=== PATIENT | female | born 1940 | race Caucasian/White ===

== ENCOUNTER 2019-07-11 10:03 | Inpatient (IN) | payer OTHER, SELFPAY ==
[2019-07-11] VITALS (19 sets, daily range): BP systolic 120–149; BP diastolic 56–96; PULSE 92–142; RESP 20–37; TEMP 35.8–36.9; O2SAT 94–100; BMI 53.6
--- NOTE | ~2019-07-11 | XR_ITS ---
EXAMINATION: XR chest 1V portable INDICATION: Shortness of breath TECHNIQUE: Portable AP chest at 1042 hours COMPARISON: None available FINDINGS: Cardiomegaly is noted. There is a diffuse interstitial pattern. No definite pleural effusio n or pneumothorax is identified. There are changes of prior cardiac surgery. IMPRESSION: 1. Cardiomegaly. 2. Diffuse interstitial pattern, likely moderate pulmonary edema. Reviewed, dictated and finalized at location A. D REPRESENTATIVE
--- NOTE | 2019-07-11 10:19 | ECG_ITS ---
Measurements Intervals [place] Rate: 108 P: 47 KS: 206 QRS: 30 QRSD: 115 T: 107 QT: 337 QTc: 453 Interpretive Statements SINUS TACHYCARDIA INTRAVENTRICULAR CONDUCTION DELAY LOW QRS VOLTAGE IN PRECORDIAL LEADS CANNOT RULE OUT SEPTAL INFARCT, AGE INDETERMINATE BORDERLINE ST-T WAVE ABNORMALITY- LATERAL LEADS BASELINE WANDER- V3 ABNORMAL ECG Electronically Signed On 07-11-2019 10:23:16 HISTOLOGICAL ILLUSTRATOR by Max Hernandez D.O.
--- NOTE | 2019-07-11 10:19 | ED.SOB ---
HPI - SOB/Dyspnea General Chief Complaint: Shortness of Breath/Dyspnea Stated Complaint: sob Time Seen by Provider: 07/11/19 10:17 Source: patient and RN notes reviewed Mode of arrival: EMS Limitations: clinical condition History of Present Illness HPI Narrative: A 79 y/o female, with hx of COPD and CHF, presents to the ED via EMS with with a BiPAP in place d/t worsening SOB for the past 3 days. She reports a recent cough and low grade fevers. She notes that she has chronic unchanged BLE edema. She denies any nasal congestion, sore throat, CP, sweats, N/V/D, or ABD pain. MD elicited complaint: shortness of breath Pertinent past history: COPD and congestive heart failure Onset (ago): day(s) (3) Context: recent illness Timing: progressively worsening Known history of: COPD and congestive heart failure Associated symptoms: fever (low grade), cough and other (chronic unchanged BLE edema) Treatment prior to arrival: other (BiPAP) Related Data Home Medications Medication Instructions Recorded Confirmed albuterol sulfate 2.5 mg INHALATION Q6H PRN 07/11/19 07/11/19 alprazolam 0.5 mg PO DAILY 07/11/19 07/11/19 amitriptyline 25 mg PO HS 07/11/19 07/11/19 aspirin [Hayley Chewable Aspirin] 81 mg PO DAILY 07/11/19 07/11/19 atorvastatin 40 mg PO HS 07/11/19 07/11/19 clopidogrel 75 mg PO DAILY 07/11/19 07/11/19 docusate sodium 200 mg PO DAILY 07/11/19 07/11/19 enalapril maleate 2.5 mg PO DAILY 07/11/19 07/11/19 famotidine 40 mg PO HS 07/11/19 07/11/19 fluticasone propion-salmeterol 1 ea INHALATION Q12H 07/11/19 07/11/19 [Advair Diskus] folic acid 1 mg PO DAILY 07/11/19 07/11/19 furosemide 40 mg PO DAILY 07/11/19 07/11/19 glipizide 2.5 mg PO DAILY 07/11/19 07/11/19 hydrocodone-acetaminophen 2 tablet PO Q6H PRN 07/11/19 07/11/19 ipratropium bromide 3 ml INHALATION Q12H 07/11/19 07/11/19 isosorbide mononitrate 60 mg PO DAILY 07/11/19 07/11/19 magnesium hydroxide [Milk of 30 ml PO DAILY PRN 07/11/19 07/11/19 Magnesia] magnesium oxide 400 mg PO DAILY 07/11/19 07/11/19 metoprolol succinate 100 mg PO DAILY 07/11/19 07/11/19 multivitamin 1 cap PO DAILY 07/11/19 07/11/19 nitroglycerin 0.4 mg SUBLINGUAL Q5M PRN 07/11/19 07/11/19 omega-3 fatty acids 1,000 mg PO BID 07/11/19 07/11/19 pantoprazole 40 mg PO DAILY 07/11/19 07/11/19 potassium chloride 40 meq PO DAILY 07/11/19 07/11/19 ranolazine 1,000 mg PO BID 07/11/19 07/11/19 sertraline 50 mg PO DAILY 07/11/19 07/11/19 spironolactone 25 mg PO DAILY 07/11/19 07/11/19 Allergies Allergy/AdvReac Type Severity Reaction Status Date / Time ibuprofen Allergy Hives Verified 07/11/19 11:54 shrimp Allergy Other Verified 07/11/19 11:54 codeine AdvReac Nausea Verified 07/11/19 11:54 morphine AdvReac Nausea Verified 07/11/19 11:54 Review of Systems Review of Systems: All systems reviewed & are unremarkable except as noted in HPI and below Constitutional: Constitutional: Reports fever(s) (low grade) ENT: Denies nasal congestion and Denies sore throat Cardiovascular: Cardiovascular: Denies chest pain, Denies diaphoresis and Reports edema (chronic unchanged BLE) Respiratory: Respiratory: Reports cough and Reports dyspnea Gastrointestinal: Gastrointestinal: Denies abdominal pain, Denies diarrhea, Denies nausea and Denies vomiting [facility] Past Medical History Medical History (Updated 07/11/19 @ 19:26 by Rod Zapata MD) Anxiety CAD (coronary artery disease) CHF (congestive heart failure) COPD (chronic obstructive pulmonary disease) Depression DM2 (diabetes mellitus, type 2) HTN (hypertension) with goal to be determined Hyperlipidemia Obstructive sleep apnea Surgical History Surgical History (Updated 07/11/19 @ 18:09 by Vijaya Shnanon NP) H/O heart artery stent X4 H/O: hysterectomy Hx of cholecystectomy Previous back surgery X9 S/P CABG x 4 Family History Family History Mother Acute myocardial infarction Sibling Acute m
[2019-07-11 10:31] LABS: Alveolar/Arterial O2 Gradient 479.4 mmHg; Base Excess ABG 1.6 mEq/l (+/-2.0); Carboxyhemoglobin 1.2 % THb (0-2.0); Fractional Inspired Oxygen 100 %; HCO3 ABG 30.4 mEq/l (22.0-26.0); Methemoglobin ABG 0.1 %THb (0-1.5); Oxygen Content ABG 18.4 %vol (16.0-22.0); Oxygen Saturation ABG 98.8 % (95.0-100.0); Oxyhemoglobin 97.2 % THb (90.0-100.0); PO2 ABG 164.8 mmHg (80.0-100.0); PO2 FiO2 Ratio Arterial Blood 1.65 %; Reduced Hemoglobin 1.5 %THb (0-5.0); Total Hemoglobin 13.2 g/dL (12.0-18.0)
[2019-07-11 10:34] LABS: Device OTHER DEVICE; Modified Allen's Test Pass; PCO2 ABG 68.8 mmHg (35.0-45.0); Site Drawn LEFT RADIAL; pH ABG 7.263 (7.350-7.450)
[2019-07-11] MEDS: IPRATROPIUM BR 0.02% INH SOLN 0.5 MG/2.5 ML VIAL 1 MG INHALATION (10:35)
[2019-07-11] MEDS: ALBUTEROL SULFATE NEB 2.5 MG/0.5 ML INH 15 MG INHALATION (10:35)
[2019-07-11 10:37] LABS: Basophils Absolute Auto 0.1 K/mm3 (0.0-0.1); Basophils Percent Auto 0.5 % (0.2-1.2); Eosinophils Absolute Auto 0.3 K/mm3 (0-0.3); Eosinophils Percent Auto 2.4 % (0-4.4); Hematocrit 42.3 % (37.0-47.0); Hemoglobin 13.2 g/dL (12.0-15.0); Immature Granulocyte Absolute 0.22 K/mm3 (0.00-0.031); Immature Granulocyte Percent A 1.6 % (0-0.5); Lymphocytes Absolute Auto 4.94 K/mm3 (0.9-3.2); Lymphocytes Percent Auto 35.4 % (18.3-44.2); Mean Corpuscular HGB Conc 31.2 g/dl (32-36); Mean Corpuscular Hemoglobin 31.9 pg (26-34); Mean Corpuscular Volume 102.2 fl (80-100); Mean Platelet Volume 10.7 fl (7.4-10.4); Monocytes Absolute Auto 1.2 K/mm3 (0.1-0.6); Monocytes Percent Auto 8.4 % (2.6-8.5); Neutrophils Absolute Auto 7.2 K/mm3 (1.3-6.7); Neutrophils Percent Auto 51.7 % (45.5-73.1); Platelet Count Result 284 k/mm3 (150-375); Red Blood Count 4.14 M/mm3 (4.2-5.4); Red Cell Distribution Width 12.6 % (11.5-14.5); White Blood Count 13.9 K/mm3 (4.5-10.0)
[2019-07-11 10:51] LABS: Prothrombin Time 12.6 Seconds (11.1-14.7)
[2019-07-11 10:52] LABS: Partial Thromboplastin Time 33.3 SECONDS (22.3-36.8)
[2019-07-11 10:59] LABS: NT Pro B Type Natriuretic Pept 3030 PG/ML (5-100)
[2019-07-11 11:06] LABS: Alanine Aminotransferase 22 U/L (4-35); Albumin Level 3.7 g/dL (3.5-5.1); Alkaline Phosphatase 105 U/L (38-126); Aspartate Amino Transferase 35 U/L (14-36); Bilirubin,Total 0.5 mg/dL (0.2-1.3); Blood Urea Nitrogen 16 mg/dL (7-17); Calcium 8.9 mg/dL (8.4-10.2); Carbon Dioxide 29 mmol/L (22-30); Chloride 95 mmol/L (98-107); Estimated Glomerular Filt Rate > 60; Glucose 130 mg/dL (65-105); Potassium 4.2 mmol/L (3.4-5.0); Sodium 134 mmol/L (137-145)
[2019-07-11] MEDS: FUROSEMIDE INJ 40 MG/4 ML VIAL IV PUSH ×2 (11:18→21:30)
[2019-07-11] MEDS: methylPREDNISolone SOD SUCC 125 MG VIAL IV PUSH (11:18)
[2019-07-11 11:27] LABS: CRP 12.9 mg/dL (<1.0)
[2019-07-11 11:50] LABS: Add Urine Microscopic? NO; Appearance Urine Clear (Clear); Bilirubin Urine Negative (Negative); Blood Urine Negative (Negative); Color Urine Yellow (Yellow); Glucose Urine UA Negative (Negative); Ketones Urine Negative (Negative); Leukocyte Esterase Ur Negative LEU/UL (Negative); Nitrate Urine Negative (Negative); Protein Urine Negative (Negative); Specific Grav Ur 1.016 (1.001-1.035); Urobilinogen Urine Negative mg/dL (<2.0)
--- NOTE | 2019-07-11 13:15 | PC.NURSE ---
This patient, Angelica Garrett, was admitted to IMU Room 203-01. Patient/family oriented to hospital policies and general routines including ID bracelet, bed and alarms, visiting hours, pain management, procedures, bathroom and other care routines, personal items, smoking policy, room service/diet, and visiting hours. Valuables list has been completed. Information on how to activate the Rapid Response Team has been discussed. Patient/Family are encouraged to report perceived risks to care and to ask questions if they do not understand what they are told or what they should do.
[2019-07-11 17:17] LABS: Glucose Point of Care 191 (65-105)
--- NOTE | 2019-07-11 17:58 | PM.IMHP ---
H&P: HPI History of Present Illness Chief complaint: CHF exacerbation/acute respiratory failure Narrative: Angelica Garrett is a 79 year old female who has a history of COPD, obstructive sleep apnea. The patient chronically wears oxygen at home typically 2 L. yesterday she bumped her oxygen up to 2.5 L. she stated that she has taken all of her medications as prescribed. Patient has been more short of breath with exertion after minimal exertion. She also has orthopnea. Patient was very wheezy as well. Patient typically goes [facility] however when EMS picked her up her O2 saturations were very low. I do not have the exact numbers as I do not have access to the ER notes at this time. Patient initially was placed on a BiPAP and came to IMU on her normal oxygen. Patient became very anxious at 1 time. She is now sitting on the side of the bed and is talkative. She is able to talk in full sentences. Her lower extremities are about 4+ pitting edema. Nebulizer treatments. Date of service 07/11/2019. Review of Systems Review of Systems: Narrative: The patient had multiple complaints today. Patient became teary-eyed and was complaining about how she has no help around the house. She has her daughter living with her and feels that her daughter does not do enough to help her. Patient states she needs more help at home. Her recently started dialysis. Patient short of breath with exertion as well as sling flat. She has home oxygen. She has had increased swelling to her lower extremities. All systems reviewed & are unremarkable except as noted in HPI and below Constitutional: Constitutional: Reports as per HPI, Reports no additional constitutional complaints, Reports fatigue and Reports weakness Eyes: Eyes: Reports as per HPI and Reports no additional eye complaints ENT: Reports system reviewed and no additional complaints, except as documented and Reports hearing normal Cardiovascular: Cardiovascular: Reports no additional cardiovascular complaints Comments: History of congestive heart failure. Respiratory: Respiratory: Reports as per HPI, Reports no additional respiratory complaints, Reports no additional respiratory complaints, Reports dyspnea and Reports dyspnea on exertion Gastrointestinal: Gastrointestinal: Reports as per HPI and Reports no additional gastrointestinal complaints Musculoskeletal: Musculoskeletal: Reports no additional musculoskeletal complaints Integumentary/Breasts: Skin/Breast: Reports system reviewed and no additional complaints, except as docu and Reports as per HPI Neurologic: Reports system reviewed and no additional complaints, except as documented, Reports as per HPI and Reports Normal hearing present Psychiatric: Psychiatric: Reports no additional psychiatric complaints and Reports as per HPI Endocrine: Endocrine: Reports no additional endocrine complaints Hematologic/Lymphatic: Hematologic/Lymphatic: Reports no additional hematologic/lymphatic complaints Allergic/Immunologic: Allergic/Immunologic: Reports no additional allergic/immunologic complaints [facility] Past Medical History Medical History (Updated 07/11/19 @ 18:21 by Vijaya Shannon NP) Anxiety CAD (coronary artery disease) CHF (congestive heart failure) COPD (chronic obstructive pulmonary disease) Depression DM2 (diabetes mellitus, type 2) HTN (hypertension) with goal to be determined Hyperlipidemia Obstructive sleep apnea Surgical History Surgical History (Updated 07/11/19 @ 18:09 by Vijaya Shannon NP) H/O heart artery stent X4 H/O: hysterectomy Hx of cholecystectomy Previous back surgery X9 S/P CABG x 4 Family History Family History Mother Acute myocardial infarction Sibling Acute myocardial infarction Hx of CABG Diabetes mellitus Small cell lung cancer Other Colon cancer granddaughter Social History Social
[2019-07-11 20:11] LABS: Alveolar/Arterial O2 Gradient 93.2 mmHg; Fractional Inspired Oxygen 30 %; HCO3 ABG 27.2 mEq/l (22.0-26.0); Oxygen Content ABG 16.5 %vol (16.0-22.0); Oxygen Saturation ABG 93.6 % (95.0-100.0); Oxyhemoglobin 93.1 % THb (90.0-100.0); PCO2 ABG 44.6 mmHg (35.0-45.0); PO2 ABG 68.3 mmHg (80.0-100.0); PO2 FiO2 Ratio Arterial Blood 2.28 %; Total Hemoglobin 12.6 g/dL (12.0-18.0); pH ABG 7.403 (7.350-7.450)
[2019-07-11 20:13] LABS: Device NASAL CANNULA; Liters per Minute 2.5 LPM; Modified Allen's Test Pass; Site Drawn LEFT RADIAL
[2019-07-11] MEDS: RANOLAZINE 500 MG TAB.ER.12H 1000 MG PO (20:13)
[2019-07-11] MEDS: methylPREDNISolone SOD SUCC 125 MG VIAL 60 MG IV PUSH (20:14)
[2019-07-11] MEDS: OMEGA 3 POLYUNSAT FATTY ACIDS 1 GM CAP PO (20:14)
[2019-07-11] MEDS: METOPROLOL SUCCINATE EXT REL 100 MG TABCR PO (20:14)
[2019-07-11 20:26] LABS: Glucose Point of Care 336 (65-105)
[2019-07-11] MEDS: LEVALBUTEROL NEB 1.25 MG/3 ML 0.63 MG INHALATION (20:35)
[2019-07-11] MEDS: FAMOTIDINE 20 MG TABLET 40 MG PO (21:30)
[2019-07-11] MEDS: INSULIN ASPART (*BKC) 100 UNITS/ML 6 UNITS SUB-Q (21:30)
[2019-07-11] MEDS: ATORVASTATIN 40 MG TABLET PO (21:30)
[2019-07-11] MEDS: AMITRIPTYLINE HCL 25 MG TABLET PO (21:30)
--- NOTE | 2019-07-11 22:07 | ECG_ITS ---
Measurements Intervals [place] Rate: 115 P: NE: 0 QRS: 83 QRSD: 97 T: 145 QT: 361 QTc: 500 Interpretive Statements ATRIAL FLUTTER/TACHYCARDIA WITH RAPID VENTRICULAR RESPONSE ST-T WAVE ABNORMALITY IN ANTEROLAT/LAT LEADS- CONSIDER ISCHEMIA BASELINE ARTIFACT- I, III, AVL, AVF ABNORMAL ECG Electronically Signed On 07-12-2019 7:17:58 BELT GLASS SANDER by Max Hernandez D.O.
[2019-07-11] MEDS: ENOXAPARIN 100 MG/ML SYRINGE SUB-Q (22:42)
[2019-07-11] MEDS: ENOXAPARIN 30 MG/0.3 ML SYRINGE SUB-Q (22:42)
[2019-07-12] VITALS (22 sets, daily range): BP systolic 106–154; BP diastolic 62–88; PULSE 72–139; RESP 18–22; TEMP 35.9–36.8; O2SAT 92–98
[2019-07-12] MEDS: methylPREDNISolone SOD SUCC 125 MG VIAL 60 MG IV PUSH ×5 (01:28→23:11)
[2019-07-12] MEDS: LEVALBUTEROL NEB 1.25 MG/3 ML 0.63 MG INHALATION ×4 (02:00→20:18)
[2019-07-12 06:08] LABS: Basophils Percent Auto 0.1 % (0.2-1.2); Hematocrit 36.1 % (37.0-47.0); Hemoglobin 11.6 g/dL (12.0-15.0); Immature Granulocyte Absolute 0.09 K/mm3 (0.00-0.031); Immature Granulocyte Percent A 0.9 % (0-0.5); Lymphocytes Absolute Auto 1.24 K/mm3 (0.9-3.2); Lymphocytes Percent Auto 12.8 % (18.3-44.2); Mean Corpuscular HGB Conc 32.1 g/dl (32-36); Mean Corpuscular Hemoglobin 31.8 pg (26-34); Mean Corpuscular Volume 98.9 fl (80-100); Mean Platelet Volume 10.7 fl (7.4-10.4); Monocytes Absolute Auto 0.3 K/mm3 (0.1-0.6); Monocytes Percent Auto 2.8 % (2.6-8.5); Neutrophils Absolute Auto 8.1 K/mm3 (1.3-6.7); Neutrophils Percent Auto 83.4 % (45.5-73.1); Platelet Count Result 261 k/mm3 (150-375); Red Blood Count 3.65 M/mm3 (4.2-5.4); Red Cell Distribution Width 12.5 % (11.5-14.5); White Blood Count 9.7 K/mm3 (4.5-10.0)
[2019-07-12 06:22] LABS: Potassium 4.3 mmol/L (3.4-5.0)
[2019-07-12 06:26] LABS: Alanine Aminotransferase 21 U/L (4-35); Albumin Level 3.1 g/dL (3.5-5.1); Alkaline Phosphatase 82 U/L (38-126); Aspartate Amino Transferase 33 U/L (14-36); Bilirubin,Total 0.3 mg/dL (0.2-1.3); Blood Urea Nitrogen 18 mg/dL (7-17); Calcium 8.7 mg/dL (8.4-10.2); Carbon Dioxide 31 mmol/L (22-30); Chloride 96 mmol/L (98-107); Estimated CRCL calculation 66 ml/min; Estimated Glomerular Filt Rate > 60; Glucose 140 mg/dL (65-105); Magnesium 1.7 mg/dL (1.6-2.3); Potassium 4.2 mmol/L (3.4-5.0); Sodium 135 mmol/L (137-145)
[2019-07-12 07:08] LABS: Hemoglobin A1C 5.9 % (<5.7)
[2019-07-12] MEDS: glipiZIDE XL 2.5 MG TAB.ER.24 PO (08:04)
[2019-07-12] MEDS: PANTOPRAZOLE 40 MG TABLET PO (08:06)
[2019-07-12] MEDS: MAGNESIUM OXIDE 400 MG TABLET PO (08:07)
[2019-07-12] MEDS: ASPIRIN 81 MG CHEWABLE TABLET PO (08:07)
[2019-07-12] MEDS: METOPROLOL SUCCINATE EXT REL 100 MG TABCR PO (08:07)
[2019-07-12] MEDS: SPIRONOLACTONE 25 MG TABLET PO (08:07)
[2019-07-12] MEDS: FOLIC ACID 1 MG TABLET PO (08:08)
[2019-07-12] MEDS: FUROSEMIDE INJ 40 MG/4 ML VIAL IV PUSH ×2 (08:08→20:00)
[2019-07-12] MEDS: MULTIVITAMINS THERAPEUTIC TAB (*BKC) 1 TABLET PO (08:08)
[2019-07-12] MEDS: ISOSORBIDE MONONITRATE 60 MG TAB.ER.24H PO (08:08)
[2019-07-12] MEDS: SERTRALINE HCL 50 MG TABLET PO (08:08)
[2019-07-12] MEDS: CLOPIDOGREL BISULFATE 75 MG TABLET PO (08:09)
[2019-07-12] MEDS: OMEGA 3 POLYUNSAT FATTY ACIDS 1 GM CAP PO ×2 (08:09→16:54)
[2019-07-12] MEDS: ENALAPRIL MALEATE 2.5 MG TABLET PO (08:09)
[2019-07-12] MEDS: ENOXAPARIN 30 MG/0.3 ML SYRINGE SUB-Q ×2 (08:09→20:01)
[2019-07-12] MEDS: RANOLAZINE 500 MG TAB.ER.12H 1000 MG PO ×2 (08:10→16:56)
[2019-07-12] MEDS: POTASSIUM CHLORIDE 20 MEQ TABLET.ER 40 MEQ PO (08:10)
[2019-07-12] MEDS: ENOXAPARIN 100 MG/ML SYRINGE SUB-Q ×2 (08:11→20:01)
[2019-07-12] MEDS: DOCUSATE SODIUM 100 MG CAPSULE 200 MG PO (08:11)
[2019-07-12 08:20] LABS: Thyroid Stimulating Hormone Reflex 0.593 uIU/mL (0.465-4.68)
[2019-07-12 08:33] LABS: Glucose Point of Care 161 (65-105)
[2019-07-12] MEDS: ALPRAZOLAM 0.5 MG TABLET PO (08:35)
[2019-07-12] MEDS: IPRATROPIUM BR 0.02% INH SOLN 0.5 MG/2.5 ML VIAL INHALATION (09:35)
--- NOTE | 2019-07-12 11:18 | WPDCN ---
Assessment and Plan Assessment and plan (1) Atrial flutter: Code(s): I48.92 - Unspecified atrial flutter Status: Acute Assessment and Plan: Paroxysmal atrial flutter, typical pattern, initially noted June 2019. Will work with rate control and anticoagulation. Already taking metoprolol SR 100 mg daily; will add Cardizem 120 mg qd though unfortunately the patient already has significant edema. One EKG showed a somewhat prolonged QT interval, so sotalol use may be problematic. However we could consider that if we fail other therapies, though we may need to discontinue the patient's RAnolazine and amitriptyline. Prefer not to use amiodarone if possible because of her pre-existing lung disease. A flutter ablation is another option. Recommended anticoagulation; we will start warfarin but see if her insurance might cover a NOAC. FU w/ her usual [employer] architect Dr. Heaton after discharge. Although I have explained all this to the patient, she was so distracted by her other social issues I do not think she heard much of what I said. . (2) CHF (congestive heart failure): Qualifiers: Heart failure chronicity: acute on chronic Heart failure type: unspecified Qualified Code(s): I50.9 - Heart failure, unspecified Code(s): I50.9 - Heart failure, unspecified Status: Chronic Assessment and Plan: History of diastolic CHF, with an exacerbation, improving with IV diuresis. . (3) CAD (coronary artery disease): Code(s): I25.10 - Atherosclerotic heart disease of [place] coronary artery without angina pectoris Status: Acute Assessment and Plan: Multiple procedures in the past, most recently a drug-eluting stent in the proximal RCA on 06/19/2019. She will need to continue dual anti-platelet therapy or anticoagulant plus anti-platelet medication for year, with triple therapy (aspirin, Plavix, warfarin) for at least the 1st month after stent implant. . (4) COPD (chronic obstructive pulmonary disease): Code(s): J44.9 - Chronic obstructive pulmonary disease, unspecified Status: Chronic (5) Morbid obesity: Code(s): E66.01 - Morbid (severe) obesity due to excess calories Status: Acute (6) Depression: Code(s): F32.9 - Major depressive disorder, single episode, unspecified Status: Chronic HPI Data of Consult Date/Time: 07/12/19 11:18 Requesting Physician: Madi Suarez MD Primary Care Provider: UNKNOWN,DOCTOR Consult Narrative Narrative: Date of service: 07/12/2019 Angelica Garrett is a 79 year old female whom I was asked to see at the request of Dr. Motta for my advice and opinion regarding her atrial flutter, in consultation. Ms. Garrett has a history of COPD on home O2, BILLIE on CPAP, CAD, diastolic CHF, morbid obesity, chronic atypical chest pains, bronchiectasis, and lymphedema. She had proximal RCA drug-eluting stent placed in June 2019 at [facility] by her usual [employer] architect, Dr. Heaton. She had transient atrial flutter during that admission which was new but resolved. Since discharge she has chronic shortness of breath and wheezing and gets around with a walker and has a lot of trouble with anxiety and depression. In the last week or so she noted decreased urine output and called her primary care doctor, Dr. Fajardo, last Wednesday about it then increased her Lasix to 2 daily for 4 days. She seemed to be better but then she became more progressively short of breath such that she could not talk or walk across the room. She was admitted with CHF exacerbation and was initially on BiPAP but has improved with Lasix 40 mg IV push b.i.d.. She has been noted to have paroxysmal atrial flutter sometimes lasting for few hours with a heart rate in the 140s since admission. Her chronic LE edema is about the same. No recent CP/burning. Occasional palpitations at home when she is aggravated by her daughter. The patient is a di
[2019-07-12 12:32] LABS: Glucose Point of Care 193 (65-105)
[2019-07-12 14:03] LABS: INR 1.1; Prothrombin Time 13.6 Seconds (11.1-14.7)
--- NOTE | 2019-07-12 16:19 | PM.DS ---
DS: Diagnosis Admitting Diagnosis Admitting Diagnosis: Acute respiratory failure, unspecified whether with hypoxia or hypercapnia Discharge Diagnosis (1) Acute respiratory failure: Code(s): J96.00 - Acute respiratory failure, unspecified whether with hypoxia or hypercapnia Status: Acute Assessment and Plan: Patient initially was on a BiPAP and is now on her home oxygen rate. She is being treated for COPD and CHF. (2) COPD (chronic obstructive pulmonary disease): Code(s): J44.9 - Chronic obstructive pulmonary disease, unspecified Status: Chronic Assessment and Plan: Continue with nebulizer treatments and Solu-Medrol. (3) CHF (congestive heart failure): Qualifiers: Heart failure chronicity: acute on chronic Heart failure type: unspecified Qualified Code(s): I50.9 - Heart failure, unspecified Code(s): I50.9 - Heart failure, unspecified Status: Chronic Assessment and Plan: Continue with IV Lasix. Continue with metoprolol and enalapril. Patient typically goes to [facility] I did ask for records from her last admission. (4) Hyperlipidemia: Code(s): E78.5 - Hyperlipidemia, unspecified Status: Acute Assessment and Plan: Continue with Stebbins 3 and Lipitor (5) CAD (coronary artery disease): Code(s): I25.10 - Atherosclerotic heart disease of [place] coronary artery without angina pectoris Status: Acute Assessment and Plan: Patient stated that she has had 4 stents and possibly 4 vessel bypass. Continue with her isosorbide. Continue with metoprolol. Continue with Plavix. (6) HTN (hypertension) with goal to be determined: Code(s): I10 - Essential (primary) hypertension Status: Acute Assessment and Plan: Continue with enalapril, metoprolol, Lasix, and Aldactone. (7) Obstructive sleep apnea: Code(s): G47.33 - Obstructive sleep apnea (adult) (pediatric) Status: Acute Assessment and Plan: Patient brought her home CPAP continue with this please (8) Obesity: Code(s): E66.9 - Obesity, unspecified Status: Acute Assessment and Plan: Due to excessive calorie intake. Since patient is aware of healthy lifestyle. However her daughter prepares meals for her. (9) DM2 (diabetes mellitus, type 2): Code(s): E11.9 - Type 2 diabetes mellitus without complications Status: Chronic Assessment and Plan: Accu-Cheks a.c. and HS. Sliding scale insulin. (10) Depression: Code(s): F32.9 - Major depressive disorder, single episode, unspecified Status: Chronic Assessment and Plan: Continue with amitriptyline and Zoloft (11) Anxiety: Code(s): F41.9 - Anxiety disorder, unspecified Status: Chronic Assessment and Plan: Continue with Xanax and amitriptyline and Zoloft DS: Summary Time Spent with Patient Time attestation: Total time spent providing and/or coordinating discharge services: DS: Data Data Completed and Pending Labs on day of discharge: Labs from last 24 hours 07/12/19 07/12/19 07/12/19 13:25 12:17 07:53 WBC RBC Hgb Hct MCV MCH MCHC RDW Plt Count MPV Immature Gran % (Auto) Neut % (Auto) Lymph % (Auto) [place] % (Auto) Eos % (Auto) Baso % (Auto) Lymph # (Auto) [place] # (Auto) Eos # (Auto) Baso # (Auto) Abs Immat Gran (auto) Absolute Neuts (auto) Absolute Nucleated RBC Nucleated RBC % PT 13.6 INR 1.1 Puncture Site ABG pH ABG pCO2 ABG pO2 ABG PO2/FiO2 Ratio ABG HCO3 ABG O2 Saturation ABG O2 Content ABG Base Excess A-a Gradient Oxyhemoglobin Total Hemoglobin O2 Delivery Device O2 Liters/Min FiO2 Sodium Potassium Chloride Carbon Dioxide BUN Creatinine Estim Creat Clear Calc Estimated GFR Glucose POC Capillary Glucose 193 H 161 H Hemoglo
[2019-07-12 16:26] LABS: Glucose Point of Care 154 (65-105)
[2019-07-12] MEDS: WARFARIN (*PBKC) 5 MG TABLET PO (16:59)
[2019-07-12] MEDS: ATORVASTATIN 40 MG TABLET PO (20:00)
[2019-07-12] MEDS: FAMOTIDINE 20 MG TABLET 40 MG PO (20:00)
[2019-07-12 20:51] LABS: Glucose Point of Care 158 (65-105)
--- NOTE | 2019-07-17 16:09 | PM.TDS ---
Transfer Discharge Sum: Prov Provider Date of admission: 07/11/19 12:23 Primary care physician: PHYSICIAN NOT ON STAFF Admitting clinician: Madi Suarez MD Consults: 07/11/19 Care Coordination Consult Routine Comment: Reason for Consult:: Home Health Consult to Physician Routine Comment: NEW ONSET OF AFIB Consulting Provider: Luis A Herman call worker person/MD group to consult: cardiology group on berta Reason for consultation: new onset of afib Has provider been notified: Yes DS: Diagnosis Admitting Diagnosis Admitting Diagnosis: Hypertensive heart disease with heart failure Transfer Discharge Sum: Med Medications Active and Home Medications: Home Medications albuterol sulfate 2.5 mg INHALATION Q6H PRN 07/11/19 [History Confirmed 07/11/19] alprazolam 0.5 mg PO DAILY 07/11/19 [History Confirmed 07/11/19] amitriptyline 25 mg PO HS 07/11/19 [History Confirmed 07/11/19] aspirin [Hayley Chewable Aspirin] 81 mg PO DAILY 07/11/19 [History Confirmed 07/11/19] atorvastatin 40 mg PO HS 07/11/19 [History Confirmed 07/11/19] clopidogrel 75 mg PO DAILY 07/11/19 [History Confirmed 07/11/19] docusate sodium 200 mg PO DAILY 07/11/19 [History Confirmed 07/11/19] enalapril maleate 2.5 mg PO DAILY 07/11/19 [History Confirmed 07/11/19] famotidine 40 mg PO HS 07/11/19 [History Confirmed 07/11/19] fluticasone propion-salmeterol [Advair Diskus] 1 ea INHALATION Q12H 07/11/19 [History Confirmed 07/11/19] folic acid 1 mg PO DAILY 07/11/19 [History Confirmed 07/11/19] furosemide 40 mg PO DAILY 07/11/19 [History Confirmed 07/11/19] glipizide 2.5 mg PO DAILY 07/11/19 [History Confirmed 07/11/19] hydrocodone-acetaminophen 2 tablet PO Q6H PRN 07/11/19 [History Confirmed 07/11/19] ipratropium bromide 3 ml INHALATION Q12H 07/11/19 [History Confirmed 07/11/19] isosorbide mononitrate 60 mg PO DAILY 07/11/19 [History Confirmed 07/11/19] magnesium hydroxide [Milk of Magnesia] 30 ml PO DAILY PRN 07/11/19 [History Confirmed 07/11/19] magnesium oxide 400 mg PO DAILY 07/11/19 [History Confirmed 07/11/19] metoprolol succinate 100 mg PO DAILY 07/11/19 [History Confirmed 07/11/19] multivitamin 1 cap PO DAILY 07/11/19 [History Confirmed 07/11/19] nitroglycerin 0.4 mg SUBLINGUAL Q5M PRN 07/11/19 [History Confirmed 07/11/19] omega-3 fatty acids 1,000 mg PO BID 07/11/19 [History Confirmed 07/11/19] pantoprazole 40 mg PO DAILY 07/11/19 [History Confirmed 07/11/19] potassium chloride 40 meq PO DAILY 07/11/19 [History Confirmed 07/11/19] ranolazine 1,000 mg PO BID 07/11/19 [History Confirmed 07/11/19] sertraline 50 mg PO DAILY 07/11/19 [History Confirmed 07/11/19] spironolactone 25 mg PO DAILY 07/11/19 [History Confirmed 07/11/19] Transfer Discharge Sum: Hosp Hospital Course Hospital course: Angelica Garrett is a 79 year old female with CABG and recently patient seen at [facility] and had a cardiac cath and stents, Patient was bronght to the ER with c/o exacerbation of CHF and was found to have new onset A.fib with RVR, 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 Winslow hospitalist and he has accepted the patient, patient is clinically stable, will transfer the patient Time Spent with Patient Time attestation: Total time spent providing and/or coordinating transfer services: Patient was seen and examined at the time of the discharge Condition at discharge is stable Code status: Full code. Time spent preparing discharge summary, discharge medications, discussing discharge planning with case therapist and patient is 35 minutes. Exam Narrative: Exam Narrative: Morbidly obese Const: General: comfortable and no acute distress HENMT: General nose exam: nares normal Mouth: Yes moist mucous membranes Eyes: General: appearance normal, both eyes and all related structures Sclera:
== END 2019-07-12 23:20 | disposition short-term general hospital (02) | DRG 292 ==
LOC: ANHED 12:28 → ANHIMU 14:05
PROVIDERS: Emergency Medicine; Internal Medicine Cardiovascular Disease; Nurse Practitioner; Admitting Provider Internal Medicine; Emergency Provider Emergency Medicine; Visit Provider Family Medicine
DX: I11.0 Hypertensive heart disease with heart failure (principal); I48.92 Unspecified atrial flutter; Z68.43 Body mass index [BMI] 50.0-59.9, adult; I50.32 Chronic diastolic (congestive) heart failure; J44.9 Chronic obstructive pulmonary disease, unspecified; I25.10 Atherosclerotic heart disease of native coronary artery without angina pectoris; G47.33 Obstructive sleep apnea (adult) (pediatric); F32.9 Major depressive disorder, single episode, unspecified; F41.9 Anxiety disorder, unspecified; Z95.1 Presence of aortocoronary bypass graft; E66.01 Morbid (severe) obesity due to excess calories; Z95.5 Presence of coronary angioplasty implant and graft; Z90.49 Acquired absence of other specified parts of digestive tract; Z87.891 Personal history of nicotine dependence; Z79.82 Long term (current) use of aspirin; Z99.81 Dependence on supplemental oxygen
CPT/HCPCS: 36415; 36600; 71045; 80053; 81003; 82375; 82805; 83036; 83050; 83605; 83735; 83880; 84132; 84443; 85025; 85610; 85730; 86140; 87040; 87804; 93005; 94002; 94640; 96374; 96375; 99285; A9270; J1650; J1815; J1940; J2930; J3010